=== PATIENT | female | born 1940 | race Caucasian/White ===

== ENCOUNTER 2021-05-03 16:25 | Inpatient (IN) | payer MEDICARE ==
[~2021-05-03] VITALS: Ht 149.9 cm; Wt 57.2 kg
[2021-05-03 16:15] VITALS: BP 150/45
[2021-05-03 16:45] VITALS: BP 150/45
[2021-05-03] MEDS ORDERED: CLONIDINE 0.1MG TABLET PO PRN (17:15)
[2021-05-03] MEDS ORDERED: MORPHINE SULFATE 2 MG/ML CPJ (NOT FOR IM USE) IV PRN (17:15)
[2021-05-03] MEDS ORDERED: DIPHENHYDRAMINE 50MG/ML VIAL IV PRN (17:15)
[2021-05-03] MEDS ORDERED: LORAZEPAM 0.5MG TABLET PO PRN (17:15)
[2021-05-03] MEDS ORDERED: DEXTROSE 50% WATER 50ML SYRINGE IV PRN (17:15)
[2021-05-03] MEDS ORDERED: BISACODYL 10MG SUPP PR PRN (17:15)
[2021-05-03] MEDS ORDERED: IPRATROPIUM/ALBUTEROL 0.5-3(2.5)MG/3ML NEB HHN PRN (17:15)
[2021-05-03] MEDS ORDERED: TEMAZEPAM 15MG CAPSULE PO PRN (17:15)
[2021-05-03] MEDS ORDERED: ACETAMINOPHEN 650MG SUPP PR PRN (17:15)
[2021-05-03] MEDS ORDERED: LACTULOSE 20G/30ML UDC PO PRN (17:15)
[2021-05-03 19:19] LABS: BASOPHILS % 0.7 % (0.0-2.0); EOSINOPHILS % 3.3 % (0.0-5.0); HEMATOCRIT. 32.5 % (36.0-48.0); HEMOGLOBIN. 11.5 g/dL (12.0-16.0); LYMPHOCYTES % 22.1 % (20.0-50.0); MEAN CORPUSCULAR HEMOGLOBIN 30.2 pg (28.0-32.0); MEAN CORPUSCULAR VOLUME 85.6 fL (81.0-99.0); MEAN PLATELET VOLUME 7.4 fl (7.4-10.4); MONOCYTES % 9.5 % (2.0-8.0); NEUTROPHILS % 64.4 % (40.0-76.0); PLATELET 321 x1000/uL (130-400); RED CELL DISTRIBUTION WIDTH 13.6 % (11.6-14.6)
[2021-05-03 19:26] LABS: INR 1.1; PROTHROMBIN TIME 11.4 sec (9.6-11.0)
[2021-05-03 19:36] LABS: CHLORIDE 99 mEq/L (98-107)
[2021-05-03 19:46] LABS: TOTAL IRON BINDING CAPACITY 275 ug/dL (250-450)
[2021-05-03 20:00] VITALS: BP 146/53
[2021-05-03 20:06] LABS: VITAMIN B12 SERUM 570 pg/mL (211-911)
[2021-05-03] MEDS: INSULIN LISPRO 100 UNITS/ML SUBCUT SCH (21:00)
[2021-05-03] MEDS: BLOOD SUGAR DIAGNOSTIC STRIP TEST SCH (21:32)
[2021-05-03] MEDS: FAMOTIDINE 20MG TABLET PO SCH (21:39)
[2021-05-03] MEDS ORDERED: ENOXAPARIN 30MG/0.3ML SYR SUBCUT NR (21:40)
[2021-05-03] MEDS: HYDROCODONE/ACETAMINOPHEN 5/325MG TABLET PO PRN (23:38)
[2021-05-04] MEDS ORDERED: CARISOPRODOL 350 MG TABLET PO PRN (00:30)
[2021-05-04] MEDS ORDERED: PREGABALIN 75MG CAPSULE PO SCH ×2 (03:23→09:00)
[2021-05-04] MEDS ORDERED: NON FORMULARY PATIENT HOME MED XX SCH (04:30)
[2021-05-04] MEDS: [UNRECOGNIZED DRUG - OTHER] PO SCH ×2 (04:42→21:52)
[2021-05-04] MEDS ORDERED: MAGN30TA3 PO (06:21)
[2021-05-04] MEDS: BLOOD SUGAR DIAGNOSTIC STRIP TEST SCH ×4 (06:30→21:00)
[2021-05-04 06:41] LABS: BASOPHILS % 0.8 % (0.0-2.0); EOSINOPHILS % 1.4 % (0.0-5.0); HEMATOCRIT. 31.7 % (36.0-48.0); LYMPHOCYTES % 12.2 % (20.0-50.0); MEAN CORPUSCULAR HEMOGLOBIN 29.9 pg (28.0-32.0); MEAN CORPUSCULAR VOLUME 85.6 fL (81.0-99.0); MEAN PLATELET VOLUME 7.7 fl (7.4-10.4); MONOCYTES % 9.1 % (2.0-8.0); NEUTROPHILS % 76.5 % (40.0-76.0); PLATELET 284 x1000/uL (130-400); RED CELL DISTRIBUTION WIDTH 13.3 % (11.6-14.6)
[2021-05-04 06:45] LABS: CHLORIDE 100 mEq/L (98-107)
[2021-05-04 06:51] LABS: LDL CHOLESTEROL 116 mg/dL (5-100)
[2021-05-04 06:52] LABS: HDL CHOLESTEROL 56 mg/dL (40-59)
[2021-05-04 06:57] LABS: T4 FREE 1.24 ng/dL (0.76-1.46)
[2021-05-04 08:00] VITALS: BP 109/49
[2021-05-04] MEDS: HYDROCODONE/ACETAMINOPHEN 5/325MG TABLET PO PRN (08:42)
[2021-05-04] MEDS: CELECOXIB 200MG CAPSULE PO SCH ×2 (08:44→17:45)
[2021-05-04] MEDS: DOCUSATE SODIUM 100MG CAPSULE PO SCH ×2 (08:45→17:45)
[2021-05-04] MEDS: TAMSULOSIN HCL 0.4MG SR CAPSULE PO SCH (08:46)
[2021-05-04] MEDS: LOSARTAN POTASSIUM 50 MG TABLET PO SCH (08:46)
[2021-05-04] MEDS: AMLODIPINE 5MG TABLET PO SCH (08:47)
[2021-05-04] MEDS: INSULIN LISPRO 100 UNITS/ML SUBCUT SCH ×4 (08:58→21:00)
[2021-05-04] MEDS: PREGABALIN 50 MG CAPSULE PO SCH ×2 (10:30→17:46)
[2021-05-04 12:04] LABS: CREATINE KINASE 115 IU/L (26-192)
[2021-05-04] MEDS: SODIUM CHLORIDE 0.9% 1,000 ML IV SCH (14:47)
[2021-05-04] MEDS ORDERED: GADOTERATE MEGLUMINE 5 MMOL/10 ML VIAL IV ONE (16:37)
[2021-05-04] MEDS: MIDODRINE HCL 2.5MG TABLET PO SCH (17:00)
[2021-05-04 17:21] LABS: CLARITY URINE CLEAR (CLEAR); COLOR URINE YELLOW (YELLOW); KETONES URINE 1+ (NEGATIVE); LEUKOCYTE ESTERASE URINE TRACE (NEGATIVE); NITRITE URINE NEGATIVE (NEGATIVE); OCCULT BLOOD URINE NEGATIVE (NEGATIVE); PH URINE 6.5 (4.5-8.0); PROTEIN URINE NEGATIVE (NEGATIVE); SPECIFIC GRAVITY URINE 1.012 (1.005-1.030); UROBILINOGEN URINE 0.2 E.U./dL (0.2-1.0)
[2021-05-04 20:00] VITALS: BP 142/47
[2021-05-04] MEDS ORDERED: ENOXAPARIN 30MG/0.3ML SYR SUBCUT SCH (20:00)
[2021-05-04] MEDS: FAMOTIDINE 20MG TABLET PO SCH (21:52)
[2021-05-04] MEDS: METHOCARBAMOL 500MG TABLET PO PRN (21:52)
[2021-05-05] MEDS: SODIUM CHLORIDE 0.9% 1,000 ML IV SCH ×2 (01:00→13:00)
[2021-05-05] MEDS: HYDROCODONE/ACETAMINOPHEN 5/325MG TABLET PO PRN ×2 (05:00→09:11)
[2021-05-05] MEDS: BLOOD SUGAR DIAGNOSTIC STRIP TEST SCH ×4 (06:30→21:01)
[2021-05-05 07:20] LABS: CHLORIDE 107 mEq/L (98-107)
[2021-05-05 08:00] VITALS: BP 133/58
[2021-05-05] MEDS: CELECOXIB 200MG CAPSULE PO SCH ×2 (08:25→16:18)
[2021-05-05] MEDS: LOSARTAN POTASSIUM 50 MG TABLET PO SCH (08:25)
[2021-05-05] MEDS: AMLODIPINE 5MG TABLET PO SCH (08:25)
[2021-05-05] MEDS: DOCUSATE SODIUM 100MG CAPSULE PO SCH ×2 (08:25→16:18)
[2021-05-05] MEDS: TAMSULOSIN HCL 0.4MG SR CAPSULE PO SCH (08:26)
[2021-05-05] MEDS: MIDODRINE HCL 2.5MG TABLET PO SCH ×2 (08:26→16:18)
[2021-05-05] MEDS: PREGABALIN 50 MG CAPSULE PO SCH ×2 (08:26→16:17)
[2021-05-05] MEDS: INSULIN LISPRO 100 UNITS/ML SUBCUT SCH ×4 (09:00→21:00)
[2021-05-05 09:07] LABS: FOLIC ACID (FOLATE) SERUM > 20.00 ng/mL (>5.38)
[2021-05-05] MEDS: LACTULOSE 20G/30ML UDC PO SCH ×3 (13:00→20:35)
[2021-05-05] MEDS ORDERED: NA PHOS,M-B/NA PHOS,DI-BA ENEMA 118ML PR ONE (15:00)
[2021-05-05 15:07] LABS: FERRITIN 108 ng/mL (10-291)
[2021-05-05] MEDS ORDERED: NA PHOS,M-B/NA PHOS,DI-BA ENEMA 118ML PR PRN (15:45)
[2021-05-05 18:13] LABS: BASOPHILS % 0.9 % (0.0-2.0); EOSINOPHILS % 1.7 % (0.0-5.0); HEMATOCRIT. 29.7 % (36.0-48.0); HEMOGLOBIN. 10.6 g/dL (12.0-16.0); LYMPHOCYTES % 11.5 % (20.0-50.0); MEAN CORPUSCULAR HEMOGLOBIN 30.5 pg (28.0-32.0); MEAN CORPUSCULAR VOLUME 85.1 fL (81.0-99.0); MEAN PLATELET VOLUME 7.2 fl (7.4-10.4); MONOCYTES % 7.2 % (2.0-8.0); NEUTROPHILS % 78.7 % (40.0-76.0); PLATELET 296 x1000/uL (130-400); RED BLOOD CELL COUNT 3.49 mill/uL (4.2-5.4); RED CELL DISTRIBUTION WIDTH 13.7 % (11.6-14.6)
[2021-05-05 20:00] VITALS: BP 148/42
[2021-05-05] MEDS: FAMOTIDINE 20MG TABLET PO SCH (20:36)
[2021-05-05] MEDS: [UNRECOGNIZED DRUG - OTHER] PO SCH (20:36)
[2021-05-06] MEDS: MIDODRINE HCL 2.5MG TABLET PO SCH ×4 (01:00→21:50)
[2021-05-06] MEDS: SODIUM CHLORIDE 0.9% 1,000 ML IV SCH ×2 (02:25→16:40)
[2021-05-06] MEDS: INSULIN LISPRO 100 UNITS/ML SUBCUT SCH ×4 (05:38→21:00)
[2021-05-06] MEDS: BLOOD SUGAR DIAGNOSTIC STRIP TEST SCH ×4 (05:38→21:50)
[2021-05-06 07:43] VITALS: BP 150/51
[2021-05-06] MEDS: CELECOXIB 200MG CAPSULE PO SCH ×2 (08:18→16:40)
[2021-05-06] MEDS: TAMSULOSIN HCL 0.4MG SR CAPSULE PO SCH (08:18)
[2021-05-06] MEDS: PREGABALIN 50 MG CAPSULE PO SCH ×2 (08:18→16:40)
[2021-05-06] MEDS: LOSARTAN POTASSIUM 50 MG TABLET PO SCH (08:18)
[2021-05-06] MEDS: HYDROCODONE/ACETAMINOPHEN 5/325MG TABLET PO PRN (08:18)
[2021-05-06] MEDS: AMLODIPINE 5MG TABLET PO SCH (08:19)
[2021-05-06] MEDS: DOCUSATE SODIUM 100MG CAPSULE PO SCH ×2 (08:19→16:40)
[2021-05-06] MEDS ORDERED: LORAZEPAM 0.5MG TABLET PO NR (12:45)
[2021-05-06] MEDS: ACETAMINOPHEN 325MG TABLET PO PRN (16:45)
[2021-05-06 20:00] VITALS: BP 113/64
[2021-05-06] MEDS: FAMOTIDINE 20MG TABLET PO SCH (21:49)
[2021-05-06] MEDS: [UNRECOGNIZED DRUG - OTHER] PO SCH (21:50)
[2021-05-07] MEDS: INSULIN LISPRO 100 UNITS/ML SUBCUT SCH ×3 (05:38→21:00)
[2021-05-07] MEDS: BLOOD SUGAR DIAGNOSTIC STRIP TEST SCH ×4 (05:38→21:38)
[2021-05-07] MEDS: SODIUM CHLORIDE 0.9% 1,000 ML IV SCH ×2 (06:17→21:45)
[2021-05-07 07:14] LABS: BASOPHILS % 0.8 % (0.0-2.0); EOSINOPHILS % 3.7 % (0.0-5.0); HEMATOCRIT. 29.1 % (36.0-48.0); HEMOGLOBIN. 10.2 g/dL (12.0-16.0); LYMPHOCYTES % 15.5 % (20.0-50.0); MEAN CORPUSCULAR VOLUME 88.9 fL (81.0-99.0); MEAN PLATELET VOLUME 7.4 fl (7.4-10.4); MONOCYTES % 8.8 % (2.0-8.0); NEUTROPHILS % 71.2 % (40.0-76.0); PLATELET 227 x1000/uL (130-400); RED BLOOD CELL COUNT 3.28 mill/uL (4.2-5.4); RED CELL DISTRIBUTION WIDTH 13.8 % (11.6-14.6)
[2021-05-07 07:47] LABS: CHLORIDE 111 mEq/L (98-107)
[2021-05-07 08:00] VITALS: BP 163/61
[2021-05-07] MEDS: DOCUSATE SODIUM 100MG CAPSULE PO SCH ×2 (08:12→16:53)
[2021-05-07] MEDS: LOSARTAN POTASSIUM 50 MG TABLET PO SCH (08:14)
[2021-05-07] MEDS: CELECOXIB 200MG CAPSULE PO SCH ×2 (08:14→16:47)
[2021-05-07] MEDS: HYDROCODONE/ACETAMINOPHEN 5/325MG TABLET PO PRN (08:14)
[2021-05-07] MEDS: PREGABALIN 50 MG CAPSULE PO SCH ×2 (08:14→16:53)
[2021-05-07] MEDS: MIDODRINE HCL 2.5MG TABLET PO SCH (08:15)
[2021-05-07] MEDS: AMLODIPINE 5MG TABLET PO SCH ×2 (08:15→16:53)
[2021-05-07] MEDS: TAMSULOSIN HCL 0.4MG SR CAPSULE PO SCH (08:15)
[2021-05-07 10:15] LABS: CLARITY URINE CLEAR (CLEAR); COLOR URINE YELLOW (YELLOW); KETONES URINE NEGATIVE (NEGATIVE); LEUKOCYTE ESTERASE URINE 2+ (NEGATIVE); NITRITE URINE POSITIVE (NEGATIVE); OCCULT BLOOD URINE 1+ (NEGATIVE); PH URINE 5.5 (4.5-8.0); PROTEIN URINE NEGATIVE (NEGATIVE); SPECIFIC GRAVITY URINE 1.007 (1.005-1.030); UROBILINOGEN URINE 0.2 E.U./dL (0.2-1.0)
[2021-05-07] MEDS ORDERED: CEFTRIAXONE 1 G PREMIX 50 ML IV SCH (13:30)
[2021-05-07] MEDS: ACETAMINOPHEN 325MG TABLET PO PRN (14:31)
[2021-05-07] MEDS: CEFTRIAXONE 1,000 MG in DEXTROSE 5% WATER 50 ML IV SCH (15:05)
[2021-05-07 20:00] VITALS: BP 132/42
[2021-05-07] MEDS: FAMOTIDINE 20MG TABLET PO SCH (21:37)
[2021-05-07] MEDS: [UNRECOGNIZED DRUG - OTHER] PO SCH (21:38)
[2021-05-08] MEDS: BLOOD SUGAR DIAGNOSTIC STRIP TEST SCH ×4 (05:45→21:05)
[2021-05-08 06:49] LABS: BASOPHILS % 1.2 % (0.0-2.0); HEMATOCRIT. 28.8 % (36.0-48.0); HEMOGLOBIN. 10.2 g/dL (12.0-16.0); LYMPHOCYTES % 15.3 % (20.0-50.0); MEAN CORPUSCULAR HEMOGLOBIN 30.7 pg (28.0-32.0); MEAN CORPUSCULAR VOLUME 86.5 fL (81.0-99.0); MEAN PLATELET VOLUME 7.7 fl (7.4-10.4); MONOCYTES % 8.4 % (2.0-8.0); NEUTROPHILS % 71.1 % (40.0-76.0); PLATELET 223 x1000/uL (130-400); RED BLOOD CELL COUNT 3.33 mill/uL (4.2-5.4); RED CELL DISTRIBUTION WIDTH 13.9 % (11.6-14.6)
[2021-05-08 06:57] LABS: CHLORIDE 114 mEq/L (98-107)
[2021-05-08 08:00] VITALS: BP 131/42
[2021-05-08] MEDS: LOSARTAN POTASSIUM 50 MG TABLET PO SCH (08:11)
[2021-05-08] MEDS: CELECOXIB 200MG CAPSULE PO SCH ×2 (08:11→17:07)
[2021-05-08] MEDS: AMLODIPINE 5MG TABLET PO SCH ×2 (08:12→17:08)
[2021-05-08] MEDS: HYDROCODONE/ACETAMINOPHEN 5/325MG TABLET PO PRN (08:12)
[2021-05-08] MEDS: DOCUSATE SODIUM 100MG CAPSULE PO SCH ×2 (08:12→17:07)
[2021-05-08] MEDS: PREGABALIN 50 MG CAPSULE PO SCH ×2 (08:13→17:07)
[2021-05-08] MEDS: TAMSULOSIN HCL 0.4MG SR CAPSULE PO SCH (08:13)
[2021-05-08] MEDS: INSULIN LISPRO 100 UNITS/ML SUBCUT SCH ×4 (08:14→21:00)
[2021-05-08] MEDS: SODIUM CHLORIDE 0.9% 1,000 ML IV SCH ×2 (08:14→21:08)
[2021-05-08] MEDS: CEFTRIAXONE 1,000 MG in DEXTROSE 5% WATER 50 ML IV SCH (14:45)
[2021-05-08 20:00] VITALS: BP 141/44
[2021-05-08] MEDS: [UNRECOGNIZED DRUG - OTHER] PO SCH (21:00)
[2021-05-08] MEDS: FAMOTIDINE 20MG TABLET PO SCH (21:05)
[2021-05-09] MEDS: BLOOD SUGAR DIAGNOSTIC STRIP TEST SCH ×4 (06:03→20:44)
[2021-05-09] MEDS: HYDROCODONE/ACETAMINOPHEN 5/325MG TABLET PO PRN (06:24)
[2021-05-09 08:00] VITALS: BP 137/48
[2021-05-09] MEDS: INSULIN LISPRO 100 UNITS/ML SUBCUT SCH ×4 (08:13→20:44)
[2021-05-09] MEDS: AMLODIPINE 5MG TABLET PO SCH ×2 (08:50→18:35)
[2021-05-09] MEDS: DOCUSATE SODIUM 100MG CAPSULE PO SCH ×2 (08:50→18:34)
[2021-05-09] MEDS: PREGABALIN 50 MG CAPSULE PO SCH ×2 (08:50→18:34)
[2021-05-09] MEDS: LOSARTAN POTASSIUM 50 MG TABLET PO SCH (08:50)
[2021-05-09] MEDS: CELECOXIB 200MG CAPSULE PO SCH ×2 (08:50→18:34)
[2021-05-09] MEDS: TAMSULOSIN HCL 0.4MG SR CAPSULE PO SCH (08:50)
[2021-05-09 13:20] LABS: BASOPHILS % 1.3 % (0.0-2.0); EOSINOPHILS % 4.2 % (0.0-5.0); HEMATOCRIT. 31.2 % (36.0-48.0); LYMPHOCYTES % 27.9 % (20.0-50.0); MEAN CORPUSCULAR HEMOGLOBIN 30.5 pg (28.0-32.0); MEAN CORPUSCULAR VOLUME 86.4 fL (81.0-99.0); MEAN PLATELET VOLUME 7.7 fl (7.4-10.4); MONOCYTES % 8.7 % (2.0-8.0); NEUTROPHILS % 57.9 % (40.0-76.0); PLATELET 261 x1000/uL (130-400); RED BLOOD CELL COUNT 3.61 mill/uL (4.2-5.4); RED CELL DISTRIBUTION WIDTH 13.9 % (11.6-14.6)
[2021-05-09 13:39] LABS: CHLORIDE 112 mEq/L (98-107)
[2021-05-09] MEDS: SODIUM CHLORIDE 0.9% 1,000 ML IV SCH (13:40)
[2021-05-09] MEDS ORDERED: LEVOFLOXACIN 500MG PREMIX 100 ML IV SCH (15:00)
[2021-05-09 20:00] VITALS: BP 139/45
[2021-05-09] MEDS: FAMOTIDINE 20MG TABLET PO SCH (20:44)
[2021-05-09] MEDS: [UNRECOGNIZED DRUG - OTHER] PO SCH (20:44)
[2021-05-10] MEDS: SODIUM CHLORIDE 0.9% 1,000 ML IV SCH ×2 (05:37→13:13)
[2021-05-10] MEDS: BLOOD SUGAR DIAGNOSTIC STRIP TEST SCH ×4 (05:37→20:21)
[2021-05-10] MEDS: INSULIN LISPRO 100 UNITS/ML SUBCUT SCH ×4 (05:38→20:21)
[2021-05-10 08:14] VITALS: BP 102/47
[2021-05-10] MEDS: PREGABALIN 50 MG CAPSULE PO SCH ×2 (09:03→17:16)
[2021-05-10] MEDS: TAMSULOSIN HCL 0.4MG SR CAPSULE PO SCH (09:03)
[2021-05-10] MEDS: DOCUSATE SODIUM 100MG CAPSULE PO SCH ×2 (09:03→17:16)
[2021-05-10] MEDS: LOSARTAN POTASSIUM 50 MG TABLET PO SCH (09:03)
[2021-05-10] MEDS: AMLODIPINE 5MG TABLET PO SCH ×2 (09:03→17:17)
[2021-05-10] MEDS: CELECOXIB 200MG CAPSULE PO SCH ×2 (09:03→17:16)
[2021-05-10] MEDS: LEVOFLOXACIN 250MG PREMIX 50 ML IV SCH (09:06)
[2021-05-10] MEDS ORDERED: LORAZEPAM 0.5MG TABLET PO NR (10:30)
[2021-05-10 20:00] VITALS: BP 132/57
[2021-05-10] MEDS: [UNRECOGNIZED DRUG - OTHER] PO SCH (20:21)
[2021-05-10] MEDS: FAMOTIDINE 20MG TABLET PO SCH (20:21)
[2021-05-11] MEDS: SODIUM CHLORIDE 0.9% 1,000 ML IV SCH ×3 (06:04→23:22)
[2021-05-11] MEDS: BLOOD SUGAR DIAGNOSTIC STRIP TEST SCH ×5 (06:04→21:23)
[2021-05-11] MEDS: INSULIN LISPRO 100 UNITS/ML SUBCUT SCH ×4 (06:05→21:00)
[2021-05-11 06:31] LABS: BASOPHILS % 0.9 % (0.0-2.0); HEMATOCRIT. 30.9 % (36.0-48.0); HEMOGLOBIN. 10.7 g/dL (12.0-16.0); LYMPHOCYTES % 19.6 % (20.0-50.0); MEAN CORPUSCULAR VOLUME 86.6 fL (81.0-99.0); MEAN PLATELET VOLUME 7.5 fl (7.4-10.4); MONOCYTES % 9.8 % (2.0-8.0); NEUTROPHILS % 64.7 % (40.0-76.0); PLATELET 245 x1000/uL (130-400); RED BLOOD CELL COUNT 3.57 mill/uL (4.2-5.4)
[2021-05-11 06:59] LABS: CHLORIDE 111 mEq/L (98-107)
[2021-05-11 08:00] VITALS: BP 148/42
[2021-05-11] MEDS: AMLODIPINE 5MG TABLET PO SCH ×2 (08:39→17:00)
[2021-05-11] MEDS: CELECOXIB 200MG CAPSULE PO SCH ×2 (08:39→16:59)
[2021-05-11] MEDS: DOCUSATE SODIUM 100MG CAPSULE PO SCH ×3 (08:40→16:59)
[2021-05-11] MEDS: PREGABALIN 50 MG CAPSULE PO SCH ×2 (08:40→16:59)
[2021-05-11] MEDS: TAMSULOSIN HCL 0.4MG SR CAPSULE PO SCH (08:40)
[2021-05-11] MEDS: LOSARTAN POTASSIUM 50 MG TABLET PO SCH (09:38)
[2021-05-11] MEDS: LEVOFLOXACIN 250MG PREMIX 50 ML IV SCH (12:30)
[2021-05-11] MEDS: HYDROCODONE/ACETAMINOPHEN 5/325MG TABLET PO PRN (15:53)
[2021-05-11 20:00] VITALS: BP 123/36
[2021-05-11] MEDS: [UNRECOGNIZED DRUG - OTHER] PO SCH (21:24)
[2021-05-11] MEDS: FAMOTIDINE 20MG TABLET PO SCH (21:24)
[2021-05-12] MEDS: INSULIN LISPRO 100 UNITS/ML SUBCUT SCH ×4 (06:38→21:00)
[2021-05-12] MEDS: BLOOD SUGAR DIAGNOSTIC STRIP TEST SCH ×4 (06:38→21:35)
[2021-05-12 07:12] LABS: BASOPHILS % 0.7 % (0.0-2.0); EOSINOPHILS % 4.5 % (0.0-5.0); HEMATOCRIT. 30.2 % (36.0-48.0); HEMOGLOBIN. 10.2 g/dL (12.0-16.0); LYMPHOCYTES % 19.6 % (20.0-50.0); MEAN CORPUSCULAR HEMOGLOBIN 29.6 pg (28.0-32.0); MEAN PLATELET VOLUME 7.8 fl (7.4-10.4); MONOCYTES % 8.8 % (2.0-8.0); NEUTROPHILS % 66.4 % (40.0-76.0); PLATELET 235 x1000/uL (130-400); RED BLOOD CELL COUNT 3.43 mill/uL (4.2-5.4); RED CELL DISTRIBUTION WIDTH 14.1 % (11.6-14.6)
[2021-05-12 07:25] LABS: CHLORIDE 112 mEq/L (98-107)
[2021-05-12 07:30] VITALS: BP 132/43
[2021-05-12] MEDS: AMLODIPINE 5MG TABLET PO SCH (08:51)
[2021-05-12] MEDS: CELECOXIB 200MG CAPSULE PO SCH ×2 (08:51→16:36)
[2021-05-12] MEDS: PREGABALIN 50 MG CAPSULE PO SCH ×2 (08:52→16:36)
[2021-05-12] MEDS: DOCUSATE SODIUM 100MG CAPSULE PO SCH ×3 (08:52→16:39)
[2021-05-12] MEDS: LOSARTAN POTASSIUM 50 MG TABLET PO SCH (08:52)
[2021-05-12] MEDS: TAMSULOSIN HCL 0.4MG SR CAPSULE PO SCH (08:52)
[2021-05-12] MEDS: LEVOFLOXACIN 250MG TABLET PO SCH (11:28)
[2021-05-12] MEDS: METHOCARBAMOL 500MG TABLET PO PRN (11:28)
[2021-05-12] MEDS: ACETAMINOPHEN 325MG TABLET PO PRN (11:29)
[2021-05-12 12:00] VITALS: BP 103/44
[2021-05-12] MEDS: HYDROCODONE/ACETAMINOPHEN 5/325MG TABLET PO PRN (15:38)
[2021-05-12] MEDS: SODIUM CHLORIDE 0.9% 1,000 ML IV SCH (19:30)
[2021-05-12 20:00] VITALS: BP 107/43
[2021-05-12] MEDS: AMLODIPINE 2.5MG TABLET PO SCH (21:00)
[2021-05-12] MEDS: [UNRECOGNIZED DRUG - OTHER] PO SCH (21:34)
[2021-05-12] MEDS: FAMOTIDINE 20MG TABLET PO SCH (21:34)
[2021-05-13] MEDS: BLOOD SUGAR DIAGNOSTIC STRIP TEST SCH ×4 (06:49→21:14)
[2021-05-13] MEDS: INSULIN LISPRO 100 UNITS/ML SUBCUT SCH ×4 (06:50→21:00)
[2021-05-13 07:39] VITALS: BP 133/51
[2021-05-13] MEDS: CELECOXIB 200MG CAPSULE PO SCH ×2 (08:40→16:23)
[2021-05-13] MEDS: AMLODIPINE 2.5MG TABLET PO SCH ×2 (08:40→21:00)
[2021-05-13] MEDS: TAMSULOSIN HCL 0.4MG SR CAPSULE PO SCH (08:41)
[2021-05-13] MEDS: LOSARTAN POTASSIUM 25 MG TABLET PO SCH (08:41)
[2021-05-13] MEDS: PREGABALIN 50 MG CAPSULE PO SCH ×2 (08:42→16:23)
[2021-05-13] MEDS: DOCUSATE SODIUM 100MG CAPSULE PO SCH ×2 (08:42→16:24)
[2021-05-13] MEDS: LEVOFLOXACIN 250MG TABLET PO SCH (11:56)
[2021-05-13] MEDS ORDERED: ERGOCALCIFEROL 50000UNITS CAPSULE PO SCH (17:00)
[2021-05-13 20:00] VITALS: BP 111/47
[2021-05-13] MEDS: [UNRECOGNIZED DRUG - OTHER] PO SCH (21:40)
[2021-05-13] MEDS: FAMOTIDINE 20MG TABLET PO SCH (21:40)
[2021-05-14] MEDS: INSULIN LISPRO 100 UNITS/ML SUBCUT SCH ×4 (05:45→21:00)
[2021-05-14] MEDS: BLOOD SUGAR DIAGNOSTIC STRIP TEST SCH ×4 (05:46→21:29)
[2021-05-14] MEDS: ACETAMINOPHEN 325MG TABLET PO PRN ×2 (06:25→21:26)
[2021-05-14 07:12] LABS: EOSINOPHILS % 3.4 % (0.0-5.0); HEMATOCRIT. 30.8 % (36.0-48.0); HEMOGLOBIN. 10.5 g/dL (12.0-16.0); LYMPHOCYTES % 16.7 % (20.0-50.0); MEAN CORPUSCULAR HEMOGLOBIN 29.4 pg (28.0-32.0); MEAN CORPUSCULAR VOLUME 85.8 fL (81.0-99.0); MEAN PLATELET VOLUME 7.9 fl (7.4-10.4); MONOCYTES % 10.9 % (2.0-8.0); PLATELET 269 x1000/uL (130-400); RED BLOOD CELL COUNT 3.58 mill/uL (4.2-5.4); RED CELL DISTRIBUTION WIDTH 14.3 % (11.6-14.6)
[2021-05-14 07:18] LABS: CHLORIDE 112 mEq/L (98-107)
[2021-05-14 08:30] VITALS: BP 151/49
[2021-05-14] MEDS: LOSARTAN POTASSIUM 25 MG TABLET PO SCH ×2 (08:43→21:29)
[2021-05-14] MEDS: TAMSULOSIN HCL 0.4MG SR CAPSULE PO SCH (08:43)
[2021-05-14] MEDS: CELECOXIB 200MG CAPSULE PO SCH ×2 (08:43→17:28)
[2021-05-14] MEDS: AMLODIPINE 2.5MG TABLET PO SCH ×2 (08:43→21:29)
[2021-05-14] MEDS: PREGABALIN 50 MG CAPSULE PO SCH ×2 (08:43→17:28)
[2021-05-14] MEDS: DOCUSATE SODIUM 100MG CAPSULE PO SCH ×2 (08:51→17:00)
[2021-05-14] MEDS: LEVOFLOXACIN 250MG TABLET PO SCH (12:12)
[2021-05-14 20:00] VITALS: BP 142/41
[2021-05-14] MEDS: FAMOTIDINE 20MG TABLET PO SCH (21:26)
[2021-05-14] MEDS: [UNRECOGNIZED DRUG - OTHER] PO SCH (21:30)
[2021-05-15] MEDS: INSULIN LISPRO 100 UNITS/ML SUBCUT SCH ×4 (05:50→21:00)
[2021-05-15] MEDS: ACETAMINOPHEN 325MG TABLET PO PRN ×2 (05:52→17:07)
[2021-05-15] MEDS: BLOOD SUGAR DIAGNOSTIC STRIP TEST SCH ×4 (05:53→21:49)
[2021-05-15] MEDS: CELECOXIB 200MG CAPSULE PO SCH ×2 (08:13→17:01)
[2021-05-15] MEDS: LOSARTAN POTASSIUM 25 MG TABLET PO SCH ×2 (08:13→21:46)
[2021-05-15] MEDS: PREGABALIN 50 MG CAPSULE PO SCH ×2 (08:13→17:01)
[2021-05-15 08:19] VITALS: BP 135/44
[2021-05-15] MEDS: DOCUSATE SODIUM 100MG CAPSULE PO SCH ×2 (08:47→17:00)
[2021-05-15 09:25] VITALS: BP 136/56
[2021-05-15] MEDS: AMLODIPINE 2.5MG TABLET PO SCH ×2 (09:26→21:47)
[2021-05-15] MEDS: TAMSULOSIN HCL 0.4MG SR CAPSULE PO SCH (09:26)
[2021-05-15] MEDS: LEVOFLOXACIN 250MG TABLET PO SCH (11:26)
[2021-05-15 20:00] VITALS: BP 144/52
[2021-05-15] MEDS: [UNRECOGNIZED DRUG - OTHER] PO SCH (21:45)
[2021-05-15] MEDS: FAMOTIDINE 20MG TABLET PO SCH (21:45)
[2021-05-16] MEDS: BLOOD SUGAR DIAGNOSTIC STRIP TEST SCH ×4 (06:19→20:27)
[2021-05-16] MEDS: INSULIN LISPRO 100 UNITS/ML SUBCUT SCH ×4 (06:19→20:27)
[2021-05-16 08:09] VITALS: BP 144/40
[2021-05-16] MEDS: PREGABALIN 50 MG CAPSULE PO SCH ×2 (08:22→17:47)
[2021-05-16] MEDS: CELECOXIB 200MG CAPSULE PO SCH ×2 (08:23→17:47)
[2021-05-16] MEDS: LOSARTAN POTASSIUM 25 MG TABLET PO SCH ×2 (08:23→20:26)
[2021-05-16] MEDS: ACETAMINOPHEN 325MG TABLET PO PRN (08:31)
[2021-05-16] MEDS ORDERED: HYDROCODONE/ACETAMINOPHEN 5/325MG TABLET PO PRN (09:00)
[2021-05-16] MEDS: DOCUSATE SODIUM 100MG CAPSULE PO SCH ×2 (09:00→17:00)
[2021-05-16] MEDS: AMLODIPINE 2.5MG TABLET PO SCH ×2 (09:00→20:26)
[2021-05-16] MEDS: TAMSULOSIN HCL 0.4MG SR CAPSULE PO SCH (10:34)
[2021-05-16] MEDS: LEVOFLOXACIN 250MG TABLET PO SCH (11:19)
[2021-05-16 20:00] VITALS: BP 112/37
[2021-05-16] MEDS: [UNRECOGNIZED DRUG - OTHER] PO SCH (20:27)
[2021-05-16] MEDS: FAMOTIDINE 20MG TABLET PO SCH (20:27)
[2021-05-17] MEDS: BLOOD SUGAR DIAGNOSTIC STRIP TEST SCH ×3 (06:28→16:17)
[2021-05-17] MEDS: INSULIN LISPRO 100 UNITS/ML SUBCUT SCH ×3 (06:28→16:17)
[2021-05-17 06:52] LABS: EOSINOPHILS % 3.5 % (0.0-5.0); HEMATOCRIT. 31.1 % (36.0-48.0); HEMOGLOBIN. 10.6 g/dL (12.0-16.0); LYMPHOCYTES % 26.1 % (20.0-50.0); MEAN CORPUSCULAR HEMOGLOBIN 29.7 pg (28.0-32.0); MEAN PLATELET VOLUME 7.2 fl (7.4-10.4); MONOCYTES % 10.3 % (2.0-8.0); NEUTROPHILS % 59.1 % (40.0-76.0); PLATELET 270 x1000/uL (130-400); RED BLOOD CELL COUNT 3.58 mill/uL (4.2-5.4)
[2021-05-17 06:59] LABS: CHLORIDE 113 mEq/L (98-107)
[2021-05-17 07:46] VITALS: BP 148/54
[2021-05-17] MEDS: PREGABALIN 50 MG CAPSULE PO SCH ×2 (08:56→16:35)
[2021-05-17] MEDS: TAMSULOSIN HCL 0.4MG SR CAPSULE PO SCH (08:56)
[2021-05-17] MEDS: AMLODIPINE 2.5MG TABLET PO SCH (08:56)
[2021-05-17] MEDS: CELECOXIB 200MG CAPSULE PO SCH ×2 (08:57→16:35)
[2021-05-17] MEDS: LOSARTAN POTASSIUM 25 MG TABLET PO SCH (08:57)
[2021-05-17] MEDS: DOCUSATE SODIUM 100MG CAPSULE PO SCH ×2 (08:58→16:35)
[2021-05-17] MEDS: LEVOFLOXACIN 250MG TABLET PO SCH (11:19)
[2021-05-17 11:51] VITALS: BP 148/58
== END 2021-05-17 17:15 | disposition home health service (06) | DRG 552 ==
PROVIDERS: ADMIT Physical Medicine & Rehabilitation Spinal Cord Injury Medicine; ATTEND Internal Medicine
DX: M48.061 Spinal stenosis, lumbar region without neurogenic claudication (principal); E87.1 Hypo-osmolality and hyponatremia; G82.20 Paraplegia, unspecified; N39.0 Urinary tract infection, site not specified; R26.89 Other abnormalities of gait and mobility; I10 Essential (primary) hypertension; E11.9 Type 2 diabetes mellitus without complications; D63.8 Anemia in other chronic diseases classified elsewhere; G89.29 Other chronic pain; I95.1 Orthostatic hypotension; M47.26 Other spondylosis with radiculopathy, lumbar region; M51.16 Intervertebral disc disorders with radiculopathy, lumbar region; M53.3 Sacrococcygeal disorders, not elsewhere classified; E55.9 Vitamin D deficiency, unspecified; F39 Unspecified mood [affective] disorder; M41.9 Scoliosis, unspecified; M48.02 Spinal stenosis, cervical region; M51.9 Unspecified thoracic, thoracolumbar and lumbosacral intervertebral disc disorder; R25.1 Tremor, unspecified; R53.81 Other malaise; M71.30 Other bursal cyst, unspecified site; Z79.899 Other long term (current) drug therapy; Z79.4 Long term (current) use of insulin; Z90.711 Acquired absence of uterus with remaining cervical stump; Z86.73 Personal history of transient ischemic attack (TIA), and cerebral infarction without residual deficits; Z90.49 Acquired absence of other specified parts of digestive tract; Z90.710 Acquired absence of both cervix and uterus; M79.609 Pain in unspecified limb; M51.26 Other intervertebral disc displacement, lumbar region
CPT/HCPCS: 36415; 70551; 71045; 72141; 72146; 72158; 76770; 80048; 80053; 80061; 81003; 82306; 82310; 82390; 82550; 82607; 82728; 82746; 82962; 83036; 83540; 83550; 83735; 84134; 84439; 84443; 84481; 85025; 85651; 86141; 87077; 87186; 87426; 93005; 93306; 93970; 97110; 97112; 97116; 97162; 97166; 97530; 97535; A9577; C1893; J0696; J1650; J1815; J1956; J7030; J7060; A4315